=== PATIENT | male | born 1970 | race American Indian/Alaskan Native ===

== ENCOUNTER 2016-10-13 02:18 | Emergency (ER) | payer SELFPAY ==
[2016-10-13 02:44] VITALS: BP 142/96
[2016-10-13 03:37] LABS: Basophils % (Auto) 1.3 % (0.0-1.8); Eosinophils % (Auto) 8.3 % (0.0-4.3); Hemoglobin 13.8 gm/dl (11.8-15.2); Mean Corpuscular HGB Conc 32 % (32-34); Mean Corpuscular Hemoglobin 30 pg (28-32); Mean Corpuscular Volume 93 fl (84-94); Platelet Count 257 K/mm3 (140-440); Red Blood Count 4.62 M/mm3 (3.65-5.03); Red Cell Distribution Width 14.4 % (13.2-15.2); White Blood Count 12.5 K/mm3 (4.5-11.0)
[2016-10-13 03:52] LABS: Anion Gap 19 mmol/L; BUN/Creatinine Ratio 14.44; Blood Urea Nitrogen 13 mg/dL (9-20); Calcium 8.6 mg/dL (8.4-10.2); Carbon Dioxide 25 mmol/L (22-30); Chloride 100.2 mmol/L (98-107); Glucose 142 mg/dL (75-100); Potassium 3.7 mmol/L (3.6-5.0); Sodium 140 mmol/L (137-145)
--- NOTE | 2016-10-13 09:59 | XRay Report ---
ROUTINE CHEST, TWO VIEWS: HISTORY: chest pain. A moderate left pleural effusion compresses the left lung base. The remainder of the lungs are clear. Normal heart and mediastinal structures. The thoracic cage is grossly intact. IMPRESSION: Moderate left pleural effusion of uncertain etiology.
== END 2016-10-13 03:20 | disposition left against medical advice (07) ==
LOC: ED 02:18
DX: R07.9 Chest pain, unspecified (principal); M54.9 Dorsalgia, unspecified; Z53.21 Procedure and treatment not carried out due to patient leaving prior to being seen by health care provider
CPT/HCPCS: 36415; 71020; 80048; 84484; 85025; 93005; 93010

== ENCOUNTER 2016-10-13 19:35 | Inpatient (IN) | payer SELFPAY ==
[2016-10-13 20:57] LABS: Basophils % (Auto) 1.5 % (0.0-1.8); Hematocrit 42.6 % (35.5-45.6); Hemoglobin 13.7 gm/dl (11.8-15.2); Mean Corpuscular HGB Conc 32 % (32-34); Mean Corpuscular Hemoglobin 30 pg (28-32); Mean Corpuscular Volume 94 fl (84-94); Platelet Count 271 K/mm3 (140-440); Red Blood Count 4.53 M/mm3 (3.65-5.03); Red Cell Distribution Width 14.4 % (13.2-15.2); White Blood Count 11.7 K/mm3 (4.5-11.0)
--- NOTE | 2016-10-13 21:22 | XRay Report ---
FINAL REPORT EXAM: XR CHEST ROUTINE 2V HISTORY: short of breath TECHNIQUE: PA and lateral chest radiographs PRIORS: None. FINDINGS: No mediastinal shift. Cardiac silhouette is not enlarged. No pneumothorax. Small left pleural effusion. Hazy left lower lung opacity. No acute skeletal finding. IMPRESSION: Left lower lung ill-defined opacity with small left effusion suggestive of infection. PA and lateral chest radiographic follow-up to resolution is recommended.
[2016-10-13 21:38] LABS: Anion Gap 19 mmol/L; BUN/Creatinine Ratio 12.22; Blood Urea Nitrogen 11 mg/dL (9-20); Calcium 8.5 mg/dL (8.4-10.2); Carbon Dioxide 24 mmol/L (22-30); Chloride 104.2 mmol/L (98-107); Glucose 117 mg/dL (75-100); Sodium 143 mmol/L (137-145)
[2016-10-13] MEDS ORDERED: ZOFRAN IV ONE (21:38)
[2016-10-13] MEDS ORDERED: MORPHINE IV ONE (21:38)
[2016-10-13] MEDS ORDERED: NACL ONE (21:44)
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
--- NOTE | 2016-10-13 23:43 | Cat Scan Report ---
FINAL REPORT EXAM: CT ANGIO CHEST HISTORY: left chest pain, left pleural effusion TECHNIQUE: CT imaging obtained through the chest following intravenous administration of 100 cc Omnipaque 350 contrast. Transaxial, Coronal and sagittal reformats are provided. PRIORS: Chest radiograph of the same date FINDINGS: Cardiac size is within normal limits. No pericardial effusion. Main pulmonary artery is within normal limits in caliber. No central or segmental pulmonary embolism. Thoracic aorta is normal in course and caliber. No periaortic stranding or fluid. No pneumothorax. Moderate left pleural effusion. No definite focal airspace disease. Linear left lower lung atelectasis/scarring. Lingular atelectasis on axial series 3, image 83. Central airways are patent. No bronchiectasis. Imaged portion of the upper abdomen is unremarkable. The superficial soft tissues are unremarkable. No acute bony abnormality or worrisome osseous lesions identified. IMPRESSION: Moderate left pleural effusion with associated compressive atelectasis. No definite airspace disease/mass, however both can go undetected in the setting of significant effusion. Clinical and imaging follow-up are recommended. Consider pulmonology consultation and thoracentesis as warranted.
[2016-10-14] MEDS ORDERED: TYLENOL PO PRN (01:34)
[2016-10-14] MEDS ORDERED: PROVENTIL IH PRN (01:34)
--- NOTE | 2016-10-14 01:34 | History and Physical Report ---
History of Present Illness Chief complaint: My chest hurts, and i keep coughing History of present illness: 46 YO Male with HTN, SUSAN, Noncompliance presents to ED for evaluation. Pt states that he has experienced difficulty breathing, nonproductive cough, and chest discomfort with deep breathing for the past 4 weeks, with worsening symptoms over the past 2 days. Pt acknowledges 10lb weight loss, subjective fever, and night sweats. Pt denies known exposure to TB, palpitations, NVD, Syncope, Hemoptysis, Prolonged travel/immobility, leg swelling, calf pain, individual/family history of DVT/PE, skin rash, or known ill contacts. Past History Past Medical History: hypertension, other (susan) Past Surgical History: No surgical history, Other (reviewed) Social history: , lives with family. denies: smoking, alcohol abuse, prescription drug abuse, IV drug use Family history: hypertension Medications and Allergies Allergies Allergy/AdvReac Type Severity Reaction Status Date / Time No Known Allergies Allergy Verified 02/14/14 14:19 Review of Systems All systems: negative Constitutional: fever, chills, sweats Ears, nose, mouth and throat: no ear pain Cardiovascular: shortness of breath, no chest pain Respiratory: cough, no hemoptysis Gastrointestinal: no abdominal pain Genitourinary Male: no dysuria Rectal: no pain Musculoskeletal: no neck stiffness Integumentary: no rash Neurological: no head injury Psychiatric: no anxiety Endocrine: no cold intolerance Hematologic/Lymphatic: no easy bruising Allergic/Immunologic: no urticaria Exam - Constitutional Vitals: Temp Pulse Resp BP Pulse Ox 98.0 F 67 16 163/105 16 L 10/13/16 20:12 10/14/16 01:05 10/14/16 01:05 10/14/16 01:05 10/14/16 01:05 General appearance: Present: mild distress - EENT Eyes: Present: PERRL ENT: hearing intact, clear oral mucosa - Neck Neck: Present: supple, normal ROM - Respiratory Respiratory effort: normal, labored Respiratory: left: diminished - Cardiovascular Heart Sounds: Present: S1 & S2. Absent: rub, click - Extremities Extremities: pulses symmetrical, No edema Peripheral Pulses: within normal limits - Abdominal General gastrointestinal: Present: soft, non-tender, non-distended, normal bowel sounds Male genitourinary: Present: normal - Integumentary Integumentary: Present: clear, warm, dry - Musculoskeletal Musculoskeletal: gait normal, strength equal bilaterally - Psychiatric Psychiatric: appropriate mood/affect, intact judgment & insight - Neurologic Neurologic: CNII-XII intact, moves all extremities Results - Labs CBC & Chem 7: 10/13/16 20:31 10/13/16 20:30 Labs: Abnormal lab results 10/13/16 10/13/16 10/14/16 Range/Units 20:30 20:31 00:37 WBC 11.7 H (4.5-11.0) K/mm3 Lymph % (Auto) 35.3 H (13.4-35.0) % Eos % (Auto) 10.0 H (0.0-4.3) % Eos # 1.2 H (0.0-0.4) K/mm3 Baso # 0.2 H (0.0-0.1) K/mm3 D-Dimer 3053.64 H (0-234) ng/mlDDU Glucose 117 H (75-100) mg/dL Assessment and Plan - Patient Problems (1) Acute respiratory failure Current Visit: Yes Status: Acute Qualifiers: Respiratory failure complication: R Plan to address problem: Supplemental oxygen, nebs, d dimer, pulmonary toilet, NIPPV as clinically indicated, Pulmonary consulted, (2) Pleural effusion Current Visit: Yes Status: Acute Plan to address problem: IR consulted for thoracentesis, Pulmonary consulted, (3) Accelerated hypertension Current Visit: Yes Status: Acute Plan to address problem: moitor BP q shift, resume home medication (4) SUSAN (obstructive sleep apnea) Current Visit: Yes Status: Acute Plan to address problem: NIPPV as clinically indicated, (5) DVT prophylaxis Current Visit: Yes Status: Acute
--- NOTE | 2016-10-14 08:24 | Admit Criteria Form ---
Admission Criteria Documentation: PLEURAL EFFUSION Clinical Indications for Admission to Inpatient Care (Place 'X' for any and all applicable criteria): Admission is indicated for ANY ONE of the following (1)(2)(3): [ ]I. Pneumonia-related effusion requiring drainage as indicated by 1 or more of the following [A]: [ ]a) Large pleural effusion (symptomatic or greater than one-half of hemithorax) [ ]b) Loculated effusion [ ]c) Pleural fluid analysis results, including ANY ONE of the following: [ ]i) Positive Gram stain or culture for bacteria [ ]ii) Pus [ ]iii) pH less than 7.20 [ ]d) Parapneumonic effusion with glucose less than 60 mg/dL (3.33 mmol/L) [X]II. Inpatient admission required rather than observation care (Also use Pleural Effusion: Observation Care criteria as appropriate) because of 1 or more of the following: [ ]1) Hemodynamic instability [X]2) Respiratory findings (Tachypnea, dyspnea) that persist despite observation care treatment [ ]3) Hypoxemia or hypercapnia that persists despite observation care treatment [ ]4) Complication of drainage (e.g., pneumothorax) that requires inpatient care [ ]5) Etiology that requires inpatient care (e.g., pulmonary embolism, trauma) [ ]6) Severe pain requiring acute inpatient management [ ]7) Chest tube placement with active evacuation (eg, suction, drainage) [ ]8) Pulmonary artery catheter monitoring [ ]9) Epidural analgesia(7) [ ]10) Immediate inpatient surgery [ ]11) Other condition, treatment, or monitoring requiring inpatient admission [ ]III. Hemothorax [ ]IV. Empyema [ ]V. Pleural effusion with concomitant pneumothorax [ ]. Recurrent or malignant pleural effusion requiring pleurodesis (4) [ ]VII. Respiratory distress Extended stay beyond goal length of stay may be needed for (27)(28): [ ]a) Empyema or complicated parapneumonic effusion (24)(29) [ ]b) Malignant pleural effusion (4) [ ]c) Pleural effusion due to trauma or perforated esophagus [ ]d) Pleural effusion due to pulmonary embolism (30) [ ]e) Clinically significant re-expansion pulmonary edema [ ]f) Hemothorax [ ]g) Renal failure [ ]h) Complications of thoracentesis, thoracostomy tube, or pleural cath. placement [ ]j) Trapped lung (e.g., benign or malignant thickened pleura preventing lung re-expansion) (31) [ ]i) Underlying etiology necessitates ongoing inpatient care (e.g., pneumonia, heart failure, malignancy) The original [facility] [employer] content created by [facility] has been revised. The portions of the content which have been revised are identified through the use of italic text or in bold, and [facility] has neither reviewed nor approved the modified material. All other unmodified content is copyright [facility]. Please see references footnoted in the original [facility] edition 2017 Admission Criteria Met: Yes
[2016-10-14] MEDS ORDERED: APRESOLINE IV PRN (08:32)
[2016-10-14 09:57] LABS: INR 0.97 (0.87-1.13)
[2016-10-14 09:58] LABS: Partial Thromboplastin Time 33.6 Sec. (24.2-36.6)
--- NOTE | 2016-10-14 11:07 | Procedure Note ---
Date of procedure: 10/14/16 Pre-op diagnosis: pleural effusion(lt) Post-op diagnosis: same Procedure: u/s guided thoracentesis Findings: heme tinged fluid Anesthesia: local Surgeon: ZENIA MEYERS Estimated blood loss: none Pathology: list (pleural fluid) Specimen disposition: to lab Condition: stable Disposition: floor
--- NOTE | 2016-10-14 11:20 | Ultrasound Report ---
Ultrasound guided thoracentesis: Imaging of the left chest demonstrates a thin echolucent pleural fluid collection. The posterior chest skin was marked for appropriate entrance. The skin was cleansed and 1% lidocaine used for local anesthesia. A drape was placed. Through a small skin arabella a 5 [place] Yueh catheter was successfully placed into the pleural cavity. 120 cc of blood-tinged fluid was collected into 2 separate syringes for laboratory evaluation. A total of 600 cc was removed without apparent complication. Portable chest: Post left thoracentesis. An expiratory PA chest demonstrates reduced fluid in the left chest compared to prior study of October 13. No pneumothorax identified. No other interval changes.
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
--- NOTE | 2016-10-14 11:49 | Consultation ---
History of Present Illness Consult date: 10/14/16 Requesting physician: SAV HARRELL Reason for consult: pleural effusion History of present illness: 46 y/o male admitted with dyspnea, found to have left sided pleural effusion. Pulmonary consulted for this. Had rhiannon done this am with 600cc of blood tinged fluid removed. Initially on LDH and cytology ordered. I have ordered glucose, protein, gram stain, afb and fungal cultures as well as sterile body fluid cultures. Repeat post CXR shows small residual left pleural effusion, no PTX. Past History Past Medical History: hypertension, other (bill) Past Surgical History: No surgical history, Other (reviewed) Social history: , lives with family. denies: smoking, alcohol abuse, prescription drug abuse, IV drug use Family history: hypertension Medications and Allergies Allergies Allergy/AdvReac Type Severity Reaction Status Date / Time No Known Allergies Allergy Verified 02/14/14 14:19 Active Meds: Active Medications Acetaminophen (Tylenol) 650 mg PO Q4H PRN PRN Reason: Pain MILD(1-3)/Fever >100.5/JACOB Albuterol (Proventil) 2.5 mg IH Q4HRT PRN PRN Reason: Shortness Of Breath Amlodipine Besylate (Norvasc) 5 mg PO QDAY KASHIF Hydralazine HCl (Apresoline) 10 mg IV Q6HR PRN PRN Reason: Hypertension Last Admin: 10/14/16 08:42 Dose: 10 mg Hydrochlorothiazide (Hctz) 12.5 mg PO QDAY KASHIF Review of Systems All systems: negative Physical Examination Vital signs: Vital Signs Temp Pulse Resp BP Pulse Ox 98.0 F 73 18 160/104 95 10/13/16 20:12 10/13/16 20:12 10/13/16 20:12 10/13/16 20:12 10/13/16 20:12 Results - Laboratory Findings CBC and BMP: 10/13/16 20:31 10/13/16 20:30 PT/INR, D-dimer PT 12.8 Sec. (12.2-14.9) 10/14/16 09:08 INR 0.97 (0.87-1.13) 10/14/16 09:08 D-Dimer 3053.64 ng/mlDDU (0-234) H 10/14/16 00:37 Abnormal lab findings: Abnormal Labs 10/14/16 00:37 D-Dimer 3053.64 H Assessment and Plan 46 y/o male with left sided pleural effusion of unknown etiology. 1. Follow up PFA 2. Follow up cultures 3. Follow up cytology
[2016-10-14] MEDS ORDERED: NORVASC PO SCH (12:00)
[2016-10-14] MEDS: NORCO 5/325 PO PRN ×2 (13:02→19:53)
[2016-10-14] MEDS: HCTZ PO SCH (13:11)
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
[2016-10-14 15:11] LABS: Basophils Body Fluid 0 %; Reactive Lymph Body Fluid 0 %
[2016-10-14] MEDS ORDERED: NORVASC PO STA (15:39)
[2016-10-15] MEDS: NORCO 5/325 PO PRN ×3 (05:47→15:37)
[2016-10-15 07:29] LABS: Anion Gap 19 mmol/L; Blood Urea Nitrogen 7 mg/dL (9-20); Calcium 8.6 mg/dL (8.4-10.2); Carbon Dioxide 26 mmol/L (22-30); Chloride 99.7 mmol/L (98-107); Glucose 95 mg/dL (75-100); Sodium 141 mmol/L (137-145)
[2016-10-15 07:46] LABS: Magnesium 1.9 mg/dL (1.7-2.3)
[2016-10-15] MEDS ORDERED: NORVASC PO SCH (10:00)
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
[2016-10-15] MEDS: HCTZ PO SCH (10:56)
--- NOTE | 2016-10-15 11:56 | Progress Note ---
Assessment and Plan 46 y/o male with left sided pleural effusion of unknown etiology. 1. Unable to determine if this is a transudate or exudate as protein and LDH not back yet. Lymphocyte predominant differential is broad, but the cell count does not meet typical criteria for this as the lymps are not greater than 80%. Follow up cultures. As of right now, nothing to do in regards to the fluid. 2. No objection to discharge from a pulmonary standpoint. Can follow up in office if remainder of results not back by discharge. Subjective Date of service: 10/15/16 Principal diagnosis: pleural effusion; 2:1 AV block Interval history: Cell count back on PFA. Lymphocyte predominant but not greater than 80. Patient had echo done, still not read yet. Protein, LDH, and glucose on fluid pending. Cytology back already which was negative for malignant cells. Objective Vital Signs - 12hr 10/15/16 10/15/16 10/15/16 00:16 07:45 10:56 Temperature 97.6 F 98.7 F Pulse Rate 69 76 Respiratory 18 20 Rate Blood Pressure 129/87 134/95 134/95 O2 Sat by Pulse 97 97 Oximetry Constitutional: no acute distress Eyes: non-icteric ENT: oropharynx moist Neck: supple Ascultation: Bilateral: clear Percussion: Bilateral: not dull Tactile fremitus: Bilateral: normal Cardiovascular: regular rate and rhythm Gastrointestinal: normoactive bowel sounds Extremities: no cyanosis, no edema, pulses normal Neurologic: normal mental status Psychiatric: mood appropriate CBC and BMP: 10/13/16 20:31 10/15/16 06:44 ABG, PT/INR, D-dimer: PT/INR, D-dimer PT 12.8 Sec. (12.2-14.9) 10/14/16 09:08 INR 0.97 (0.87-1.13) 10/14/16 09:08 D-Dimer 3053.64 ng/mlDDU (0-234) H 10/14/16 00:37 Abnormal lab findings: Abnormal Labs 10/14/16 10/15/16 10/15/16 00:37 06:44 06:44 D-Dimer 3053.64 H BUN 7 L Creatinine 0.7 L HDL Cholesterol 28 L
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
[2016-10-15 19:29] VITALS: BP 134/81
== END 2016-10-15 19:15 | disposition home or self-care (01) | DRG 186 ==
LOC: ED 19:35 → 3A 23:50
PROVIDERS: ADMIT Internal Medicine; ATTEND Internal Medicine
PROC: 0W9B3ZX Drainage of Left Pleural Cavity, Percutaneous Approach, Diagnostic (ICD-10-PCS; principal; 2016-10-14)
DX: J90 Pleural effusion, not elsewhere classified (principal); J96.00 Acute respiratory failure, unspecified whether with hypoxia or hypercapnia; I10 Essential (primary) hypertension; G47.33 Obstructive sleep apnea (adult) (pediatric); E78.5 Hyperlipidemia, unspecified; R07.89 Other chest pain; I44.30 Unspecified atrioventricular block; Z91.14 Patient's other noncompliance with medication regimen; Z82.49 Family history of ischemic heart disease and other diseases of the circulatory system
CPT/HCPCS: 32555; 36415; 71010; 71020; 71275; 80048; 80061; 82947; 83605; 83735; 83880; 84160; 84439; 84443; 84484; 85025; 85379; 85610; 85730; 87116; 88112; 88305; 89051; 93005; 93010; 93306; 96374; 96375; J0360; J2270; J2405; Q9967

== ENCOUNTER 2019-02-10 01:21 | Emergency (ER) | payer SELFPAY ==
[2019-02-10 01:28] VITALS: BP 187/103
[2019-02-10 02:09] LABS: Hematocrit 44.2 % (35.5-45.6); Hemoglobin 14.2 gm/dl (11.8-15.2); Mean Corpuscular HGB Conc 32 % (32-34); Mean Corpuscular Volume 94 fl (84-94); Platelet Count 217 K/mm3 (140-440); Red Blood Count 4.72 M/mm3 (3.65-5.03); Red Cell Distribution Width 14.3 % (13.2-15.2)
--- NOTE | 2019-02-10 02:20 | XRay Report ---
CHEST 1 VIEW, 02/10/2019 1:54 AM CLINICAL INFORMATION/INDICATION: Chest pain. COMPARISON: Chest radiograph, 10/14/2016 FINDINGS: SUPPORT DEVICES: None. HEART: The cardiac silhouette is normal in size. LUNGS/PLEURA: Faint interstitial prominence is present suggesting vascular congestion. There is no fo frantz airspace consolidation or significant pleural effusion. ADDITIONAL FINDINGS: No additional acute findings. IMPRESSION: 1. Faint interstitial prominence suggestive of mild vascular congestion. Signer Name: Yvonne Cuellar MD Signed: 02/10/2019 2:15 AM Workstation Name: [id number]
[2019-02-10 02:31] LABS: BUN/Creatinine Ratio 12; Blood Urea Nitrogen 11 mg/dL (9-20); Hemolysis Index 12
[2019-02-10 02:48] LABS: Basophils # (Auto) 0.1 K/mm3 (0.0-0.1); Eosinophils # (Auto) 0.2 K/mm3 (0.0-0.4); Eosinophils % (Auto) 1.4 % (0.0-4.3); Monocytes # (Auto) 1.1 K/mm3 (0.0-0.8); Monocytes % (Auto) 8.5 % (0.0-7.3)
[2019-02-10] MEDS ORDERED: MORPHINE 4 MG/1 ML INJ IV ONE (03:35)
[2019-02-10] MEDS ORDERED: ONDANSETRON 4 MG/2 ML INJ IV ONE (03:35)
--- NOTE | 2019-02-10 03:40 | Emergency Department Report ---
ED Chest Pain HPI - General Chief Complaint: Chest Pain Stated Complaint: CHEST AND BACK PAIN Time Seen by Provider: 02/10/19 03:29 Source: patient Mode of arrival: Ambulatory Limitations: No Limitations - History of Present Illness Initial Comments: Patient is 48 years old male with history of hypertension, noncompliant with medication. Patient presented to the ER complaining of left sided chest pain radiated down to his left flank for the last 3 days. Patient described his pain as sharp. Patient denied any shortness of breath, nausea or vomiting. No fever or chills. MD Complaint: chest pain -: days(s) (3) Pain Location: left chest Quality: sharp Consistency: constant - Related Data Previous Rx's Medication Instructions Recorded Last Taken Type Acetaminophen [Acetaminophen TAB] 650 mg PO Q4H PRN #30 tablet 10/15/16 Unknown Rx HYDROcodone/APAP 5-325 [[place] 1 each PO Q4H PRN #30 tablet 10/15/16 Unknown Rx 5-325 mg TAB] amLODIPine 10 mg PO QDAY #30 tablet 10/15/16 Unknown Rx hydroCHLOROthiazide [HCTZ] 12.5 mg PO QDAY #30 capsule 10/15/16 Unknown Rx Allergies Allergy/AdvReac Type Severity Reaction Status Date / Time No Known Allergies Allergy Verified 02/14/14 14:19 Heart Score - HEART Score History: Slightly suspicious EKG: Non-specific Age: 45-65 Risk factors: 1-2 risk factors Troponin: < normal limit HEART Score: 3 - Critical Actions Critical Actions: 0-3 pts:0.9-1.7%risk of adverse cardiac event.Candidate for discharge ED Review of Systems ROS: Stated complaint: CHEST AND BACK PAIN Other details as noted in HPI Comment: All other systems reviewed and negative Constitutional: denies: chills, fever Respiratory: denies: cough, shortness of breath, SOB with exertion, wheezing Cardiovascular: chest pain Gastrointestinal: abdominal pain. denies: nausea, vomiting, diarrhea Musculoskeletal: back pain Neurological: denies: headache, weakness, numbness ED Past Medical Hx - Past Medical History Previous Medical History?: Yes Hx Hypertension: Yes Hx HIV: No - Surgical History Past Surgical History?: No - Social History Smoking Status: Former Smoker Substance Use Type: Marijuana - Medications Home Medications: Home Medications Medication Instructions Recorded Confirmed Last Taken Type Acetaminophen [Acetaminophen TAB] 650 mg PO Q4H PRN #30 tablet 10/15/16 Unknown Rx HYDROcodone/APAP 5-325 [[place] 1 each PO Q4H PRN #30 tablet 10/15/16 Unknown Rx 5-325 mg TAB] amLODIPine 10 mg PO QDAY #30 tablet 10/15/16 Unknown Rx hydroCHLOROthiazide [HCTZ] 12.5 mg PO QDAY #30 capsule 10/15/16 Unknown Rx ED Physical Exam - General Limitations: No Limitations General appearance: alert, in no apparent distress - Head Head exam: Present: atraumatic, normocephalic, normal inspection - Eye Eye exam: Present: normal appearance, PERRL - ENT ENT exam: Present: normal exam, normal orophraynx, mucous membranes moist - Neck Neck exam: Present: normal inspection, full ROM. Absent: tenderness, meningismus, lymphadenopathy, thyromegaly - Respiratory Respiratory exam: Present: normal lung sounds bilaterally - Cardiovascular Cardiovascular Exam: Present: regular rate, normal rhythm, normal heart sounds - GI/Abdominal GI/Abdominal exam: Present: soft, normal bowel sounds. Absent: distended, tenderness, guarding, rebound, rigid, organomegaly, mass, bruit, pulsatile mass, hernia - Extremities Exam Extremities exam: Present: normal inspection, full ROM, normal capillary refill. Absent: tenderness, pedal edema, joint swelling - Back Exam Back exam: Present: normal inspection, full ROM. Absent: CVA tenderness (R), CVA tenderness (L), muscle spasm, paraspinal tenderness, vertebral tenderness - Neurological Exam Neurological exam: Present: alert, oriented X3, CN II-XII intact, normal gait, r eflexes normal - Skin Skin exam: Present: warm, intact, normal color ED Course Vital Signs 02/10/19 02/10/19 02/10/19 01:28 03:45 05:00 Temperature 97.9 F Pulse Rate 82 82 82 Respiratory 18 Rate Blood Pressure 187/103 187/103 187/103 O2 Sat by Pulse 94 Oximetry ED Medical Decision Making - Lab Data Result diagrams: 02/10/19 01:56 02/10/19 01:56 - EKG Data -: EKG Interpreted by In EKG shows normal: sinus rhythm Rate: normal - EKG Data Interpretation: no acute changes - Radiology Data Radiology results: report reviewed - Medical Decision Making Patient is 48 years old male with history of hypertension, noncompliant with medication. Patient presented to the ER complaining of left sided chest pain radiated down to his left flank for the last 3 days. Patient described his pain as sharp. Patient denied any shortness of breath, nausea or vomiting. No fever or chills. EKG is unremarkable. Labs reviewed that is negative for good finding including [address] chest, abdomen and pelvis with IV contrast showed no evidence of aortic dissection. CT chest show bi-basilar density concerning for infection. Patient is started on Zithromax and advised to follow-up with his primary care physician in the next 2-3 days and to return to the ER if symptoms are not improved Critical care attestation.: If time is entered above; I have spent that time in minutes in the direct care of this critically ill patient, excluding procedure time. ED Disposition Clinical Impression: Chest pain, Malignant hypertension Disposition: DC-01 TO HOME OR SELFCARE Is pt being admited?: No Condition: Stable Instructions: Chest Pain (ED), Hypertension (ED) Referrals: PRIMARY CARE, [Primary Care Provider] - 3-5 Days
[2019-02-10 03:43] LABS: Basophils % (Manual) 0 % (0.0-1.8); RBC Morphology Normal; Total Cells Counted 100
[2019-02-10] MEDS ORDERED: MORPHINE 2 MG/1 ML INJ IV ONE (05:00)
[2019-02-10] MEDS ORDERED: MORPHINE 2 MG/1 ML INJ ONE (05:09)
--- NOTE | 2019-02-10 05:41 | Cat Scan Report ---
CTA CHEST WITH IV CONTRAST, 02/10/2019 INDICATION: Chest pain. TECHNIQUE: Axial CT images were obtained through the chest after injection of IV contrast. Coronal oblique 2-D reconstruction images were produced. 3 plane MIP reconstruction images were produced at an [employer] workstation. All CTs at this facility utilize dose reduction techniques including automated expos ure control, iterative reconstruction and weight based dosing when appropriate to reduce patient radi ation dose to as low as reasonable achievable. COMPARISON: Chest radiograph, 02/10/2019 FINDINGS: Evaluation of the pulmonary arteries demonstrates segmental filling defects to suggest pulmonary embo lism. The thoracic aorta is normal in course and caliber. There is no evidence to suggest thoracic ao rtic dissection. Evaluation of the lung parenchyma demonstrates mild emphysematous change at the lung apices. There is a 1.1 cm density at the left lung base. There are minimal groundglass densities at the bilateral lung bases Limited imaging of the upper abdomen shows no acute abnormality. Enhancing liver mass is noted and is described on CT of the abdomen and pelvis performed the same day. Evaluation of bony structures demonstrates no evidence of acute bony abnormality. IMPRESSION: 1. No evidence of pulmonary embolism or thoracic aortic dissection. 2. Faint bibasilar groundglass densities. These are a nonspecific finding but may suggest infectious or inflammatory process. 2. Rounded 1.1 cm density at the left lung base. This is favored to be related to round atelectasis. A short-term follow-up CT of the chest is recommended when the patient's clinical condition improves to demonstrate resolution and to exclude the possibility of a pulmonary nodule. Signer Name: Yvonne Cuellar MD Signed: 02/10/2019 5:37 AM Workstation Name: [id number]
--- NOTE | 2019-02-10 05:51 | Cat Scan Report ---
CT ABDOMEN AND PELVIS ANGIOGRAM WITH IV CONTRAST INDICATION: Abdominal pain. Evaluate for aortic dissection. TECHNIQUE: Following the administration of intravenous contrast, multiple axial CT images of the abdo men and pelvis were acquired. Sagittal and coronal reformats were obtained. All CT performed at this facility utilize dose reduction techniques including automated exposure control, iterative reconstru ction and weight based dosing when appropriate to reduce patient radiation dose to as low as reasonab ly achievable. COMPARISON: Chest angiogram, 02/10/2019 FINDINGS: Limited imaging of the bilateral lung bases demonstrates faint groundglass densities. There is a 1.1 cm nodular density at the left lung base. Please see CT angiogram of the chest performed the same day for further information. Abdomen: The abdominal aorta is normal in course and caliber without evidence for aneurysm or dissection. The proximal mesenteric vessels are well opacified with contrast. Evaluation of the liver demonstrates two enhancing masses, the largest of which resides in the inferi or right hepatic lobe and measures 2.7 cm. There appearance is most compatible with hepatic hemangiom a. They are both similar in appearance when compared to CT angiogram of 10/13/2016. The spleen, pancre as, bilateral adrenal glands and bilateral kidneys show no evidence of acute abnormality. The large a nd small bowel are normal in caliber. There is no evidence of bowel obstruction. The appendix is visu alized and appears normal. Pelvis: No free fluid is seen within the pelvis. The urinary bladder appears normal. Bones and Soft Tissues: Evaluation of bony structures demonstrates no evidence of acute bony abnormal ity. Evaluation of soft tissue structures demonstrates focal inflammatory change within the right ant erior pelvic soft tissues. IMPRESSION: 1. No evidence of abdominal aortic aneurysm or dissection. 2. Hepatic hemangiomas. 3. 1.1 cm left lower lobe pulmonary nodule but is favored to be related to round atelectasis but shor t-term follow-up is recommended. Please see CT angiogram chest report. 4. Focal inflammatory changes of the right anterior pelvic soft tissues. Please correlate with patien t's physical examination. Signer Name: Yvonne Cuellar MD Signed: 02/10/2019 5:46 AM Workstation Name: [id number]
== END 2019-02-10 06:47 | disposition home or self-care (01) ==
LOC: ED 01:21
DX: R07.89 Other chest pain (principal); I10 Essential (primary) hypertension; F12.10 Cannabis abuse, uncomplicated; Z87.891 Personal history of nicotine dependence; Z79.899 Other long term (current) drug therapy
CPT/HCPCS: 36415; 71045; 71275; 74174; 80048; 83880; 84484; 85007; 85025; 93005; 93010; 96374; 96375; 96376; 99285; J2270; J2405; Q9967